=== PATIENT | male | born 1950 ===

== ENCOUNTER 2020-04-18 15:54 | Outpatient (CLI) | payer MEDICARE, MEDICAID, SELFPAY ==
[2020-04-18 16:24] LABS: Basophils # 0.1 10^3/uL (0.0-0.1); Basophils % 0.5 %; Eosinophils # 0.1 10^3/uL (0.0-0.8); Eosinophils % 0.9 %; Hemoglobin 12.7 g/dL (11.7-16.6); Lymphocytes # 1.3 10^3/uL (0.8-4.8); Lymphocytes % 12.6 %; Mean Corpuscular HGB Conc 30.2 g/dL (30.0-36.0); Mean Corpuscular Hemoglobin 30.2 pg (28.0-34.0); Mean Platelet Volume 12.2 fL (7.4-10.4); Monocytes # 0.4 10^3/uL (0.2-0.9); Monocytes % 3.9 %; Neutrophils # 8.2 10^3/uL (1.8-7.7); Neutrophils % 81.7 %; Nucleated Red Blood Cells % 0 %; Platelet Count 265 10^3/cmm (130-400); Red Cell Distribution Width 13.3 % (12.1-15.1)
[2020-04-18 16:38] LABS: Alanine Aminotransferase 10 U/L (0-41); Albumin Level 3.5 g/dL (3.5-5.2); Alkaline Phosphatase 75 IU/L (40-130); Anion Gap 14.3 (5-19); Aspartate Amino Transferase 10 U/L (0-40); Blood Urea Nitrogen 40 mg/dL (8-23); Calcium 10.2 mg/dL (8.5-10.5); Carbon Dioxide 29 mmol/L (22-29); Chloride 114 mmol/L (98-107); Globulin 2.5 g/dL (1.3-4.6); Glucose 271 mg/dL (65-115); Osmolality Calculated 323 mOsm/kg (285-295); Potassium 4.3 mmol/L (3.5-5.1); Sodium 153 mmol/L (136-145); Total Bilirubin 0.2 mg/dL (0.15-1.2)
== END 2020-04-18 15:55 | disposition home or self-care (01) ==
LOC: LAB 15:55
PROVIDERS: Family Provider Internal Medicine; PCP Internal Medicine; Visit Provider Internal Medicine
DX: R41.82 Altered mental status, unspecified (principal)
CPT/HCPCS: 80053; 85025